=== PATIENT | male | born 1960 | race Two or more races ===

== ENCOUNTER 2024-11-04 12:05 | Day surgery (SDC) | payer MEDICARE, MEDICAID, SELFPAY ==
[2024-11-03 13:24] VITALS: BMI 29.6
[2024-11-04] VITALS (9 sets, daily range): BP systolic 127–156; BP diastolic 76–101; PULSE 66–78; RESP 11–20; TEMP 36.4–37.1; O2SAT 94–97; BMI 28.8
[2024-11-04] MEDS: BENZOCAINE 20% (Hurricaine) SPRAY 1 DOSE TOP (14:54)
[2024-11-04] MEDS: RINGERS LACTATED 1000 ML 1,000 ML 60 ML IV (14:54)
[2024-11-04] MEDS: fentaNYL CIT INJ 50 mCg/ML AMP 2ML (ASD USE ONLY) IVP (14:55)
[2024-11-04] MEDS: DiphenhydrAMINE INJ 50 MG/ML VIAL 25 MG IVP (14:55)
[2024-11-04] MEDS: MIDAZOLAM INJ 1 MG/ML VIAL 2 ML (ASD USE ONLY) 2 MG IVP (14:55)
== END 2024-11-04 15:20 | disposition home or self-care (01) ==
PROVIDERS: PCP Internal Medicine Pulmonary Disease; Referring Provider Specialist; Visit Provider Specialist
PROC: (CPT 43239; principal; 2024-11-04 13:00)
DX: K21.00 Gastro-esophageal reflux disease with esophagitis, without bleeding (principal); K44.9 Diaphragmatic hernia without obstruction or gangrene
CPT/HCPCS: 43239; J1200; J2250; J3010; J7120; A9270

== ENCOUNTER 2025-01-12 15:35 | Observation (INO) | payer MEDICARE, MEDICAID, SELFPAY ==
--- NOTE | 2025-01-07 13:52 | EKG_ITS ---
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
[2025-01-07 14:01] VITALS: BMI 29.4
[2025-01-07 14:56] LABS: Collection Type, Urine Clean Catch; Squamous Epithelial Cell,Urine 0 /hpf (0-5)
[2025-01-07 15:22] LABS: Basophils # (Auto) 0.0 Thou/mm3 (0.0-0.2); Basophils % (Auto) 0 % (0-2.5); Eosinophils # (Auto) 0.4 Thou/mm3 (0.0-0.5); Eosinophils % (Auto) 4 % (0-10); Hematocrit 45.9 % (41.0-53.0); Hemoglobin 16.1 g/dL (13.5-16.0); Immature Granulocytes Auto 0.02 Thou/mm3 (0.00-0.00); Lymphocytes # (Auto) 2.6 Thou/mm3 (1.0-4.8); Lymphocytes % (Auto) 25 % (10-50); Mean Corpuscular HGB Conc 35.1 g/dl (31.0-37.0); Mean Corpuscular Hemoglobin 32.3 pg (25.0-35.0); Mean Corpuscular Volume 92 fL (80-100); Monocytes # (Auto) 0.9 Thou/mm3 (0.0-0.8); Monocytes % (Auto) 9 % (0-12); Neutrophils # (Auto) 6.3 Thou/mm3 (1.8-7.7); Neutrophils % (Auto) 61 % (37-80); Nucleated Red Blood Cell # 0.00 Thou/mm3 (0.00-0.00); Nucleated Red Blood Cell % 0 /100 WBC (0); Platelet Count 266 Thou/mm3 (140-440); RDW Standard Deviation 42.0 fL (35.1-43.9); Red Blood Count 4.98 Miln/mm3 (4.50-5.90); White Blood Count 10.3 Thou/mm3 (3.8-10.6)
[2025-01-07 15:28] LABS: Partial Thromboplastin Time 28.1 Seconds (22.0-36.0)
[2025-01-07 15:36] LABS: Bacteria,Urine 1+; Bilirubin,Urine Negative (Negative); Blood,Urine Negative (Negative); Clarity,Urine Clear (Clear/Hazy); Color,Urine Yellow (Lt Yel-Yel); Glucose, Urine Negative (Negative); Ketones,Urine Negative (Negative); Leukocyte Esterase,Urine Negative (Negative); Nitrite,Urine Negative (Negative); PH,Urine 5.5 (5.0-7.0); Protein,Urine Trace (Neg - Trace); RBC,Urine < 1 /hpf (0-3); Specific Gravity,Urine 1.029 (1.001-1.035); Urobilinogen,Urine Negative mg/dL (0.0-1.0); WBC,Urine < 1 /hpf (0-5)
[2025-01-07 15:38] LABS: Alanine Aminotransferase 29 U/L (10-49); Albumin, Serum 4.6 gm/dL (3.4-4.8); Albumin/Globulin Ratio 1.8 (1.2-2.2); Alkaline Phosphatase 78 U/L (46-116); Anion Gap 11 (7-16); Aspartate Amino Transferase 25 U/L (0-34); BUN/Creatinine Ratio 13 Ratio (12-20); Bilirubin,Total 0.6 mg/dL (0.3-1.2); Blood Urea Nitrogen 15 mg/dL (9-23); Calcium 9.7 mg/dL (8.3-10.6); Calcium (Corrected) 9.7 mg/dL (8.5-10.1); Carbon Dioxide 24.7 mMol/L (20.0-31.0); Chloride 106 mMol/L (98-107); Creatinine (Component) 1.2 mg/dL (0.6-1.3); Estimated Creatinine Clearance 60.7 mL/min (>60); Globulin 2.5 gm/dL (2.3-3.5); Glucose 140 mg/dL (74-106); Osmolality,Calculated 285 (275-295); Potassium 4.1 mMol/L (3.4-5.1); Sodium 142 mMol/L (136-145); Total Protein 7.1 gm/dL (5.7-8.2); eGFR > 60 See Note
[2025-01-12] VITALS (22 sets, daily range): BP systolic 100–138; BP diastolic 57–85; PULSE 58–94; RESP 12–24; TEMP 36.1–36.7; O2SAT 92–99; BMI 28.6
--- NOTE | 2025-01-12 07:20 | SUR.PREOP ---
Patient expressed gratitude for prayer before their procedure.
--- NOTE | 2025-01-12 12:18 | SUR.PHASEI ---
1157: Pt received in [facility] via hospital bed. Report from Odin CRAIG and Dr. Berrios. Pt groggy. Is arousable with eye opening then drifts back to sleep. Resp even, unlabored. VS stable. Haas to gravity draining clear yellow urine. Dressings to abdomen x5 dry, clean, intact. No c/o pain. 1220: Pt resting with no complaints voiced. Resp even, unlabored. VS stable. Dressings remain dry, clean, intact.
--- NOTE | 2025-01-12 12:46 | ESOP_ITS ---
Date of Procedure 01/12/25 Pre Op Diagnosis GERD Hiatal Hernia Post Op Diagnosis Same. Procedure Laparoscopic hiatal hernia repair with implantation of a Phasic ST patch and Zaria fundoplication on 01/12/2025 Findings This patient has a large hiatal hernia and significant gastroesophageal reflux. Procedure Description Patient was interviewed in the preop holding area and the procedure was discussed in detail. Risk benefits and alternatives were also discussed and informed consent is obtained. The patient was then brought to the operating room by the nursing staff. The patient was positioned in supine position on the operating table. Gen. anesthesia was administered in a satisfactory manner. The patient was positioned in the modified lithotomy position in the [facility]. Patient was given prophylactic IV antibiotics half an hour before the procedure started. The Flowtron's are applied to both legs is anti-embolism mechanism. The chest abdomen and genitalia and the legs are prepped and draped in usual manner. An open laparoscopic procedure is carried out and balloon cannula is inserted through the supraumbilical incision. There were adhesions to the peritoneal side of the linea alba and lysis of adhesions was required to insert the balloon cannula. After that the pneumoperitoneum is achieved. The patient is p ositioned in the reverse Trendelenburg position. The 30? scope is used. Under direct vision a 5 mm cannula is inserted in the subxiphoid location, 10 mm cannula is inserted in the left midclavicular location, a 10 mm cannula is inserted in the left anterior axillary line and a 5 mm cannula is inserted in the right midclavicular line. A Aisha retractor is used through the subxiphoid incision to retract the left lobe of the liver to the right side. The harmonic ultrasonic bárbara are used to divide the gastrohepatic omentum. The dissection is carried out towards the diaphragmatic hiatus and the esophago- phrenic gastrophrenic and gastrosplenic ligaments are divided with the harmonic ultrasonic bárbara. A retroesophageal window is created protecting the posterior vagus nerve and an [place] drain is passed around the esophagus to be used as a retractor. Further dissection is carried out in the posterior mediastinum and the esophagus is further freed from the mediastinal structures and the esophagus is pulled down into the abdomen. The greater curvature of the stomach is examined and the short gastric vessels on the greater curvature were divided with harmonic ultrasonic bárbara. The gastrosplenic ligaments are divided in a similar manner and the gastropancreatic ligaments are divided. After the greater curvature and the fundus is freed completely the examination is carried out in the retroesophageal space and small ligaments are divided. The hemostasis is already achieved. The hiatal hernia defect is examined carefully and it is repaired by intra and extracorporeal technique with a 3-0 Ethibond interrupted sutures. The diaphragmatic repair is carried out posterior to the esophagus. Enough space his left around the esophagus to avoid obstruction. At this point phasic's ST bioabsorbable patch was used and tailored in place and placed in an onlay manner over the diaphragmatic repair and sutured in place. Multiple sutures were taken on both the side of the esophagus between the diaphragm and the patch and also patch was sutured over the diaphragmatic repair. Now the Zaria 360? fundoplication is carried out. The orogastric tube is removed and a 56 Irish Win dilator is inserted into the esophagus and stomach by the anesthesiologist. This is used as an internal stent for calibration of the lumen. Now the freed fundus is brought around the esophagus from the left side behind the esophagus to the front on the right side and it is sutured to the left side of the fundus by intracorporeal and extracorporeal techniques using a 3-0 Ethibond interrupted sutures. There are 3 sutures placed to complete the fundoplication. The sutures passed through right and left side of the fundus as well as anterior wall of the esophagus. The Win dilator is removed. Multiple Lembert stitchs are taken between the right and left side of the fundus to the esophagus. The operative field is thoroughly irrigated with saline solution and the hemostasis is achieved. The umbilical tape is divided and it is removed. The Interceed an anti-adhesion barrier is placed between the liver and the stomach. The Aisha retractor is removed under direct vision. All the cannulas are removed under laparoscopic vision and there is no bleeding from the cannula site incisions. The balloon cannula is removed and the pneumoperitoneum is allowed to escape. The midline incision is closed in layers. The fascia is approximated by 2-0 Vicryl continuous sutures. The subcutaneous tissue is approximated by 3-0 chromic suture and the skin is approximated by 4-0 nylon interrupted sutures. The trocar site incisions are closed with the 3-0 chromic and a 4-0 nylon stitches. Sterile dressings are applied. The patient tolerated the procedure very well and is transferred to the recovery room in satisfactory condition. Anesthesia GETA Drains None. Implants Phasic ST patch on the diaphragm. Pathology / specimen None Estimated Blood Loss 25 Condition Stable Disposition PACU Surgeon Mandeep Valencia MD Surgical Staff Operation Date: 01/12/25 07:30 Case Staff Anesthesiologist: Galen Jim RN First Assistant: Jolynn Ackerman surgical coder with Ella in service
[2025-01-12] MEDS: fentaNYL CIT INJ 50 mCg/ML AMP 2ML IVP (12:51)
[2025-01-12] MEDS: HYDROmorphone 1 MG/ML PCA SYRINGE 30ML PCA (13:23)
[2025-01-12] MEDS: RINGERS LACTATED 1000 ML 1,000 ML 100 ML IV ×2 (13:39→23:06)
--- NOTE | 2025-01-12 13:45 | SUR.PHASEII ---
1300: pt awake, alert, able to follow commands, breathing unlabored, dressing to abdomen clean, dry, and intact, VS stable, report from Arline CRAIG 1342: report to Arline CRAIG
--- NOTE | 2025-01-12 14:42 | SUR.PHASEII ---
1251: Pt awake with c/o pain to abdomen. Rates pain level 10/10. Anesthesia notified. Received new order for pain control. Resp even, unlabored. VS stable. Pain medication given at this time. 1300: Pt states pain level coming down and he is much more comfortable. Resp even, unlabored. VS stable. Dressing remains dry, clean, intact. Report to Alexander CRAIG. at bedside. 1345: Assumed care. Pt resting with no complaints voiced. Resp even, unlabored. VS stable. Dressing remain dry, clean, intact. States pain level coming down and he is much more comfortable. at bedside.
--- NOTE | 2025-01-12 15:42 | SUR.PHASEII ---
1430: Pt continues to rest with no complaints voiced. Resp even, unlabored. VS stable. Dressings remain dry, clean, intact. Haas draining pale clear urine. Pt states pain level has remained at 2/10 and very comfortable. 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 left earlier and has returned at this time. 1515: Received room assignment. Pt condition with no changes. VS stable. Dressing unchanged. Report to Leeann CRAIG 3rd floor. 1520: Pt transferred to room 378 in stable condition.
--- NOTE | 2025-01-12 16:46 | PC.NURSE ---
Notified Dr. Valencia of patient Toradal and tylenol order scheduled, ok to give. Also, to order blood sugar checks AC/HS. ---Ja
[2025-01-12] MEDS: KETOROLAC INJ 30 MG/ML VIAL IVP ×2 (17:19→23:07)
[2025-01-12] MEDS: ACETAMINOPHEN IVPB 1,000 MG/100 ML VIAL 250 MG IV ×2 (17:26→23:06)
[2025-01-12] MEDS: GABAPENTIN 100 MG CAPSULE 200 MG PO (20:50)
[2025-01-13] VITALS (7 sets, daily range): BP systolic 118–135; BP diastolic 76–86; PULSE 75–81; RESP 15–18; TEMP 36.1–36.6; O2SAT 93–96
[2025-01-13] MEDS: ACETAMINOPHEN IVPB 1,000 MG/100 ML VIAL 250 MG IV ×2 (06:06→12:21)
[2025-01-13] MEDS: KETOROLAC INJ 30 MG/ML VIAL IVP ×2 (06:09→12:20)
[2025-01-13] MEDS: GABAPENTIN 100 MG CAPSULE 200 MG PO (08:45)
[2025-01-13] MEDS: GLIMEPIRIDE 1 MG TABLET 4 MG PO (08:45)
[2025-01-13] MEDS: LOSARTAN POTASSIUM 25 MG TABLET 100 MG PO (08:45)
--- NOTE | 2025-01-13 10:10 | PC.SS ---
Patient Storm Foreman is a 64 year-old male who was admitted for Zaria Fundoplication SS met with patient and patient's at bedside. SS introduced self, role, and reason for visit. Patient appeared alert and oriented to self, location, and situation. Patient was pleasant and engaged in initial assessment. Patient confirmed information on demographics. Per patient, his medical decision maker is his , Shira Foreman . Prior to admission patient did not utilize any source of DME to assist with ambulation. Patient is able to complete all ADL's independently. PCP is Artem Harris. Choice of pharmacy is [facility] in [place]. Patient also sees a airport traffic controller in [place]. At time of discharge patient wishes to return back home. will provide transportation. Discharge plan: Home next of kin: , Shira Foreman
[2025-01-13] MEDS: RINGERS LACTATED 1000 ML 1,000 ML 100 ML IV (12:21)
--- NOTE | 2025-01-13 13:43 | PD.SURPROG ---
Documentation for date of: 01/13/25 Subjective Subjective Brief History: Patient had laparoscopic Zaria fundoplication and hiatal hernia repair with implantation of a phasic ST patch postoperatively he had pain requiring narcotics IV but this morning he is doing very well the Pollick catheter was removed he is getting out of the bed and is ambulating and he is passing flatus he wants to go home he says he is doing good and he can tell there is no reflux anymore. Exam Vital Signs Temp Pulse Resp BP Pulse Ox O2 Del Method O2 Flow Rate 97.9 F 77 18 118/77 93 L Nasal Cannula 1 01/13/25 12:01/13/25 12:00 01/13/25 12:00 01/13/25 12:00 01/13/25 12:01/13/25 12:01/13/25 12:00 Narrative Exam Cardiopulmonary examination is normal abdomen is soft and nontender incisions are healing there is no bleeding or infection on the incisions. Extremities are unremarkable. Assessment & Plan Diagnosis (1) Hiatal hernia with gastroesophageal reflux: Status: Acute (2) Status post laparoscopic fundoplication: Status: Acute Plan Patient to stay on liquid diet for about 10 to 14 days slowly advance to soft diet after that. Not to lift anything heavier than 10 pounds for 3 months. Follow-up in the office in in 2 weeks. PROCEDURES: Procedures Laparoscopic hiatal hernia repair with implantation of a Phasic ST patch and Zaria fundoplication on 01/12/2025
--- NOTE | 2025-01-13 13:45 | ESDS_ITS ---
Planned Discharge Date 01/13/25 DS: Providers Provider Date of admission: 01/12/25 15:35 Primary care physician: Artem Harris MD Admitting Provider: Mandeep Valencia MD Attending Provider on Admission: Mandeep Valencia MD Attending Provider on DC: Mandeep Valencia MD Discharging Provider: Mandeep Valencia MD Diagnosis Discharge Diagnosis (1) Hiatal hernia with gastroesophageal reflux: Status: Acute (2) Status post laparoscopic fundoplication: Status: Acute (3) Postoperative pain: Status: Acute Problem List Completed Was Problem List Reviewed/Reconciled?: Yes Hospital Course Brief History: Patient had laparoscopic Zaria fundoplication and hiatal hernia repair with implantation of a phasic ST patch postoperatively he had pain requiring narcotics IV but this morning he is doing very well the Pollick catheter was removed he is getting out of the bed and is ambulating and he is passing flatus he wants to go home he says he is doing good and he can tell there is no reflux anymore. This patient had antireflux procedure yesterday his Haas catheter was removed he is ambulating today he is voiding he has no complaints and is tolerating liquid diet well without any reflux he is quite happy he is being discharged home to be followed in my office in 2 weeks. Exam Vital Signs Temp Pulse Resp BP Pulse Ox O2 Del Method O2 Flow Rate 97.9 F 77 18 118/77 93 L Nasal Cannula 1 01/13/25 12:00 01/13/25 12:01/13/25 12:00 01/13/25 12:01/13/25 12:01/13/25 12:01/13/25 12:00 Narrative Exam Cardiopulmonary examination is normal extremities are unremarkable abdomen is soft and nontender nondistended laparoscopic incisions are healing normally without any bleeding or infection. He will take naproxen and [place] was ordered. Discharge Plan Plan Patient Disposition: HOME (Self Care) Disposition Comment: Follow-up in the office in 2 weeks Prescriptions/Referrals Prescriptions/Med Rec: New hydrocodone-acetaminophen 10-325 mg tablet 1 tab PO Q6H MDD 4 PRN (Reason: pain) Qty: 20 0RF No Action glimepiride 4 mg tablet 4 mg PO QDAY Patient Comments: take 1 tablet by mouth once daily naproxen 500 mg tablet 500 mg PO Q8H PRN (Reason: pain) Patient Comments: take 1 tablet by mouth twice a day with food clonidine HCl 0.1 mg tablet 0.1 mg PO BID Patient Comments: TAKE 1 TABLET BY MOUTH TWICE DAILY carvedilol 12.5 mg tablet 12.5 mg PO BID Patient Comments: take 1 tablet by mouth twice a day irbesartan 300 mg tablet 300 mg PO DAILY Patient Comments: take 1 tablet by mouth once daily metformin 1,000 mg tablet 1,000 mg PO BIDAC Patient Comments: take 1 tablet by mouth twice a day WITH MORNING AND EVENING MEALS amlodipine 10 mg tablet 10 mg PO QDAY Patient Comments: take 1 tablet by mouth once daily spironolactone 25 mg tablet 25 mg PO DAILY Patient Comments: take 1 tablet by mouth once daily omeprazole 40 mg capsule,delayed release(DR/EC) 40 mg PO .dailyac Patient Comments: take 1 capsule by mouth once daily BEFORE A MEAL atorvastatin 40 mg tablet 40 mg PO DAILY Patient Comments: take 1 tablet by mouth once daily Referrals: rAtem Harris MD [Primary Care Provider] - Patient/Caregiver Discharge Instructions Other Discharge Activity Instructions:: May take shower stay on liquid diet for 10 days follow-up in the office in 2 weeks Other Discharge Diet Instructions: Clear liquid diet for 2 weeks Print Language: Yoruba Stand Alone Forms: Doris Award Info., Patient Portal Info Letter, Work/Release Restrictions Discharge Order Discharge Orders: Discharge (Routine); Ordered 01/13/25 Ordered By: Mandeep Valencia PROCEDURES: Procedure Date 01/12/25 Procedures Laparoscopic hiatal hernia repair with implantation of a Phasic ST patch and Zaria fundoplication on 01/12/2025
--- NOTE | 2025-01-14 08:42 | CHAP ---
Patient was visited by a Spiritual Care Volunteer on 01/13/2025 between 0904 and 1100 and received comfort, encouragement and/or prayer.
== END 2025-01-13 14:35 | disposition home or self-care (01) ==
LOC: S3SX 15:42
PROVIDERS: Admitting Provider Specialist; PCP Internal Medicine Pulmonary Disease; Referring Provider Specialist; Visit Provider Specialist
PROC: 0DV44ZZ Restriction of Esophagogastric Junction, Percutaneous Endoscopic Approach (ICD-10-PCS; CPT 43280; principal; 2025-01-12 07:30)
DX: K44.9 Diaphragmatic hernia without obstruction or gangrene (principal); K21.9 Gastro-esophageal reflux disease without esophagitis; Z01.810 Encounter for preprocedural cardiovascular examination; I44.0 Atrioventricular block, first degree; G89.18 Other acute postprocedural pain
CPT/HCPCS: 43450; 43280; 36415; 80053; 81001; 85025; 85730; 93005; 96361; 96374; 96375; 96376; A4217; A4649; C1765; G0378; J0131; J0461; J0694; J1100; J1885; J2250; J2371; J2405; J2704; J3010; J3490; J7120; A9270